=== PATIENT | female | born 2005 | race African-American/Black ===

== ENCOUNTER 2025-03-11 06:12 | Emergency (ER) | payer BC ==
[2025-03-11 06:24] VITALS: BP 104/71; PULSE 76; RESP 18; TEMP 97.9; BMI 22.3
[2025-03-11] MEDS ORDERED: BACITRACIN ZINC 15 GM TUBE TOPICAL OINTMENT ONE (07:04)
== END 2025-03-11 07:16 | disposition home or self-care (01) ==
LOC: JER 06:12 → JERFT 06:12
DX: S90.421A Blister (nonthermal), right great toe, initial encounter (principal); S90.422A Blister (nonthermal), left great toe, initial encounter; X58.XXXA Exposure to other specified factors, initial encounter; Y93.01 Activity, walking, marching and hiking
CPT/HCPCS: 99282-25

== ENCOUNTER 2025-03-28 23:37 | Emergency (ER) | payer BC ==
[2025-03-28 23:47] VITALS: BP 108/72; PULSE 80; RESP 18; TEMP 98.1; BMI 22.6
[2025-03-29] MEDS ORDERED: ACETAMINOPHEN INJECTION 100 ML ONE (00:36)
[2025-03-29] MEDS: ACETAMINOPHEN 1000 MG/100 ML BAG IVPB ONE (01:05)
[2025-03-29 01:18] LABS: ABSOLUTE IMMATURE GRANULOCYTES 0.04 x10^3/uL (0.0-0.031); BASOPHILS # 0.07 x10^3/uL (0.01-0.08); EOSINOPHIL % 0.3 % (0.7-5.8); EOSINOPHILS # 0.04 x10^3/uL (0.04-0.36); HEMATOCRIT 29.6 % (34.1-44.9); HEMOGLOBIN 8.8 g/dL (11.2-15.7); MCHC 29.7 g/dl (32.2-35.5); MEAN CELL VOLUME 62.6 fl (79.4-94.8); MEAN PLT VOLUME 9.9 fl (9.4-12.3); MONOCYTE # 0.95 x10^3/uL (0.24-0.86); MONOCYTE % 7.1 % (4.7-12.5); PLATELET COUNT 377 x10^3/uL (182-369); RDW 20.5 % (12.1-16.5)
[2025-03-29 01:23] LABS: EPI CELLS >36 /uL (0-25.1); HYALINE CASTS 0 /uL (0-3.1); PH,URINE 5.5 (5.0-8.0); URINE APPEARANCE CLOUDY; URINE BACTERIA 1642 /uL (0-1359); URINE BILIRUBIN NEGATIVE (NEGATIVE); URINE COLOR YELLOW; URINE GLUCOSE (UA) NEGATIVE (NEGATIVE); URINE KETONE NEGATIVE (NEGATIVE); URINE LEUK ESTERASE TRACE (NEGATIVE); URINE NITRITE NEGATIVE (NEGATIVE); URINE PROTEIN NEGATIVE (NEGATIVE); URINE RBC 33 /uL (0-23.9); URINE UROBILINOGEN 0.2 mg/dL (0.2-1.0); URINE WBC 29 /uL (0-25.8)
[2025-03-29 01:47] LABS: POTASSIUM 3.7 mmol/L (3.5-5.1)
[2025-03-29 01:49] LABS: ALBUMIN 4.3 g/dl (3.4-5.0); CALCIUM 9.4 mg/dL (8.5-10.1)
[2025-03-29 01:50] LABS: BLOOD UREA NITROGEN 5.4 mg/dL (7-18)
[2025-03-29 01:53] LABS: CREATININE 0.7 mg/dL (0.55-1.3)
[2025-03-29 01:54] LABS: BILIRUBIN,TOTAL 0.3 mg/dL (0.2-1); TOT PROT 7.9 g/dl (6.4-8.2)
[2025-03-29] MEDS ORDERED: CEFTRIAXONE 1 G/50 ML PREMIX 50 ML IVPB ONE (02:51)
[2025-03-29] MEDS ORDERED: KETOROLAC TROMETHAMINE 30 MG/1 ML VIAL ONE (02:51)
[2025-03-29] MEDS: CEFTRIAXONE 1 GM in DEXTROSE 5%-WATER - 50 ML IVPB ONE (03:17)
[2025-03-29] MEDS: KETOROLAC TROMETHAMINE 30 MG/1 ML VIAL IVPUSH ONE (03:17)
[2025-03-29] MEDS: SODIUM CHLORIDE 0.9% 500 ML INFUS.BAG IV ONE (03:17)
== END 2025-03-29 04:32 | disposition home or self-care (01) ==
LOC: JER 23:37
PROC: 3E03329 Introduction of Other Anti-infective into Peripheral Vein, Percutaneous Approach (ICD-10-PCS; principal; 2025-03-29)
PROC: 3E033NZ Introduction of Analgesics, Hypnotics, Sedatives into Peripheral Vein, Percutaneous Approach (ICD-10-PCS; 2025-03-29)
PROC: 3E0333Z Introduction of Anti-inflammatory into Peripheral Vein, Percutaneous Approach (ICD-10-PCS; 2025-03-29)
DX: N39.0 Urinary tract infection, site not specified (principal); R10.30 Lower abdominal pain, unspecified; R30.0 Dysuria
CPT/HCPCS: 36415; 80053; 81003; 84703; 85025; 87086; 87491; 87591; 99284-25; J0131

== ENCOUNTER 2025-05-22 12:22 | Emergency (ER) | payer BC ==
[2025-05-22 12:32] VITALS: BP 109/73; PULSE 72; RESP 18; TEMP 98.2; BMI 22.6
[2025-05-22] MEDS ORDERED: FAMOTIDINE 20 MG TABLET ONE (13:40)
[2025-05-22] MEDS ORDERED: ACETAMINOPHEN 500 MG TABLET (FP) ONE (13:40)
[2025-05-22] MEDS: FAMOTIDINE 20 MG TABLET PO ONE (13:45)
[2025-05-22] MEDS: ACETAMINOPHEN 500 MG TABLET (FP) PO ONE (13:45)
[2025-05-22 14:03] LABS: URINE APPEARANCE CLEAR; URINE BILIRUBIN NEGATIVE (NEGATIVE); URINE COLOR YELLOW; URINE GLUCOSE (UA) NEGATIVE (NEGATIVE); URINE KETONE NEGATIVE (NEGATIVE); URINE LEUK ESTERASE NEGATIVE (NEGATIVE); URINE NITRITE NEGATIVE (NEGATIVE); URINE PROTEIN NEGATIVE (NEGATIVE); URINE UROBILINOGEN 0.2 mg/dL (0.2-1.0)
[2025-05-22 14:04] LABS: HCG,QUALITATIVE URINE Negative
[2025-05-22] MEDS ORDERED: FLUCONAZOLE 150 MG TABLET PO ONE (14:41)
[2025-05-22] MEDS ORDERED: SIMETHICONE 80 MG TAB.CHEW (FP) ONE (14:41)
[2025-05-22] MEDS: FLUCONAZOLE 150 MG TABLET PO ONE (14:44)
[2025-05-22] MEDS: SIMETHICONE 80 MG TAB.CHEW (FP) PO ONE (14:44)
[2025-05-22 23:09] LABS: HCV DIAGNOSTIC IN-HOUSE W/RFLX NON-REACTIVE (NONREACTIVE); HIV INTERPRETATION NEGATIVE (NEGATIVE)
== END 2025-05-22 14:45 | disposition home or self-care (01) ==
LOC: JER 12:22
DX: B37.31 Acute candidiasis of vulva and vagina (principal); R10.2 Pelvic and perineal pain; R14.0 Abdominal distension (gaseous); R30.9 Painful micturition, unspecified; N89.8 Other specified noninflammatory disorders of vagina
CPT/HCPCS: 36415; 81003; 84703; 86803; 87070; 87086; 87205; 87389; 87491; 87591; 87661; 99283-25